=== PATIENT | male | born 1965 | race Caucasian/White ===

== ENCOUNTER 2016-02-23 16:44 | Emergency (ER) | payer OTHER ==
[2016-02-23] MEDS ORDERED: SODIUM CHLORIDE 0.9% 100 ML IV ONE (18:34)
[2016-02-23] MEDS ORDERED: CEFTRIAXONE 1 GM VIAL ONE (18:34)
== END 2016-02-23 20:12 | disposition home or self-care (01) ==
LOC: ER 16:44
DX: R50.82 Postprocedural fever (principal)
CPT/HCPCS: 36415 ×2; 80053 ×2; 83605 ×2; 85025 ×2; 87040 ×2; 96365 ×2; 99284; J0696